=== PATIENT | male | born 1965 | race Caucasian/White ===

== ENCOUNTER 2023-07-23 08:29 | Outpatient (CLI) | payer OTHER, SELFPAY ==
--- NOTE | ~2023-07-23 | US_ITS ---
EXAMINATION: US thyroid DATE: 07/23/2023 10:08 INDICATION: Rodrick's thyroiditis. TECHNIQUE: Multiple ultrasound images of the thyroid were obtained. COMPARISON: None. FINDINGS: The right thyroid lobe measures 4.8 x 2.0 x 1.4 cm. The left thyroid lobe measures 4.4 x 1.9 x 1.4 c m. There is normal echotexture and echogenicity throughout the thyroid gland. No discrete nodules id entified. Normal vascular flow is present. IMPRESSION: 1. Normal thyroid. Reviewed, dictated and finalized at location E. IMPRESSION: 1. Normal thyroid.
--- NOTE | ~2023-07-23 | US_ITS ---
EXAMINATION: US carotid duplex BI DATE: 07/23/2023 10:17 INDICATION: Rodrick's thyroiditis TECHNIQUE: Grayscale, color Doppler, and pulsed Doppler images of the cervical carotid arteries were obtained. The degree of vessel stenosis is placed in one of the following categories: normal, <50%, 5 0-69%, >=70% but less than near-occlusion, near-occlusion, or total occlusion. Note that percent sten osis relative to normal distal artery lumen diameter is indirectly measured from velocity measurement s as described by Tra, et al. Radiology 2003; 229:340-346. COMPARISON: None. FINDINGS: RIGHT: The right common carotid artery (CCA) peak systolic velocity (PSV) is 61 cm/s. The right internal car otid artery (ICA) PSV is 52 cm/s. The right ICA end-diastolic velocity (EDV) is 16 cm/s. The right IC A/CCA PSV ratio is 0.9. Grayscale and color Doppler images yield an estimate of <50% diameter reducti on from plaque in the ICA. The external carotid artery (ECA) PSV is 68 cm/s. There is antegrade flow in the right vertebral artery. LEFT: The left CCA PSV is 64 cm/s. The left ICA PSV is 69 cm/s. The left ICA EDV is 28 cm/s. The left ICA/C CA PSV ratio is 1.1. Grayscale and color Doppler images yield an estimate of <50% diameter reduction from plaque in the ICA. The ECA PSV is 74 cm/s. There is antegrade flow in the left vertebral artery. IMPRESSION: 1. <50% stenosis in the right internal carotid artery. 2. <50% stenosis in the left internal carotid artery. Reviewed, dictated and finalized at location A.
--- NOTE | ~2023-07-23 | MR_ITS ---
MRI of the brain Clinical History: Bilateral retinal hemorrhage Technique: Axial and sagittal T1-weighted images were acquired. These were followed by axial T2-weigh christy, diffusion weighted, gradient, and FLAIR images. Following intravenous administration of 15 cc Mu ltiHance gadolinium, T1-weighted fat-sat imaging was performed in the axial and coronal planes. Findings: There is no abnormal signal in the brain parenchyma. No acute infarct, intracranial hemorrh age, or mass lesion identified. Ventricles and subarachnoid spaces are unremarkable. Orbits are unremarkable. In particular, no abnor mal signal seen in the eye globes. Paranasal sinuses and mastoid air cells are clear. Major intracran ial flow voids are intact. Sagittal midline structures are intact. No abnormal postcontrast enhancement identified. IMPRESSION: Unremarkable exam. Reviewed, dictated and finalized at [facility]. IMPRESSION: Unremarkable exam.
== END 2023-07-23 08:30 ==
PROVIDERS: PCP Emergency Medicine; Visit Provider Emergency Medicine
DX: H35.63 Retinal hemorrhage, bilateral (principal); I65.23 Occlusion and stenosis of bilateral carotid arteries; E06.3 Autoimmune thyroiditis
CPT/HCPCS: 70553; 76536; 93880; A9577

== ENCOUNTER 2023-10-02 10:47 | Outpatient (CLI) | payer OTHER, SELFPAY | END 2023-10-02 10:48 | disposition home or self-care (01) | LOC: ANHAUDASC 10:47 | PROVIDERS: PCP Emergency Medicine; Visit Provider Otolaryngology | DX: H90.3 Sensorineural hearing loss, bilateral (principal) | CPT/HCPCS: 92557; 92567 ==

== ENCOUNTER 2025-04-12 10:16 | Outpatient (CLI) | payer BC, SELFPAY ==
--- NOTE | ~2025-04-12 | CT_ITS ---
EXAMINATION: CT sinus wo con DATE: 04/12/2025 10:36 INDICATION: Chronic sinusitis TECHNIQUE: Computed tomography (CT) of the paranasal sinuses was performed without intravenous contra st. The dose-length product was 391.66 mGy-cm. Automated exposure control and iterative reconstructio n technique were employed. COMPARISON: None FINDINGS: Leftward nasal septal deviation. Ostiomeatal units are patent. No significant mucosal thick ening or mucoperiosteal reaction. No air-fluid levels. Mastoids are pneumatized. IMPRESSION: 1. No significant sinus disease. Reviewed, dictated and finalized at location A.
== END 2025-04-12 10:17 | disposition home or self-care (01) ==
PROVIDERS: PCP Otolaryngology; Visit Provider Emergency Medicine
DX: J34.3 Hypertrophy of nasal turbinates (principal)
CPT/HCPCS: 70486

== ENCOUNTER 2025-06-20 00:57 | Day surgery (SDC) | payer BC, SELFPAY ==
[2025-06-14 13:09] VITALS: BMI 25.1
--- NOTE | 2025-06-14 13:16 | SUR.PREOP ---
Report to the Outpatient Waiting Room, entrance under the green pavilion located off [facility], at time _1200_ on date 06/20/25. Planned Procedure Time: _1400_.? Time changes happen often and if your time is changed the preop area will call you the afternoon before. - You and your visitor will be asked to self-screen and do not enter if you have any COVID symptoms. Please call surgeon if you need to reschedule. - A mask is optional within the hospital at this time. Patients may have clear liquids (water, carbonated beverages, clear teas, apple juice) until 3 hours prior to surgery with a maximum of 20 ounces. - No food from midnight until time of surgery and no smoking, or chewing tobacco (or any form of nicotine). No chewing gum, candy or mints. - Infants may have breast milk until 4 hours before surgery, formula 6 hours prior to surgery. - Children will be allowed to drink immediately following surgery.? If applicable, please bring a bottle or sippy cup to assist with drinking. Juice, water, soda, and popsicles are readily available.? For infants on formula, please bring formula the day of surgery.? Pacifiers are allowed. Take only the following medications with a SIP of water on the morning of surgery: __n/a__ DO NOT STOP ANY OF YOUR OTHER PRESCRIPTION MEDICATIONS PRIOR TO SURGERY EXCEPT THE FOLLOWING Hold all vitamins and supplements for 3 days per anesthesiologist. Medications to discontinue per physician n/a____ Date to take last dose Please no make-up, nail bangladeshi, hairspray, perfume, deodorant, or body powder the day of surgery.? No jewelry (including any body piercings) or valuables the day of surgery, leave them at home.? Please take a shower or bath the night before, or the morning of, surgery with an antibacterial soap.? Wear comfortable, loose fitting clothing.? Children are encouraged to wear pajamas. - Jewelry must be removed prior to entering the operating room.? Rings and piercings that are not removed may be cut off. - The hospital will not accept responsibility for valuables.? - Please leave all valuables, including medications, at home the day of surgery. If you are going home after surgery, a licensed dray truck driver must drive you home.? - NO public transportation without another adult if you receive anesthesia. - We recommend that an adult stay with you for 24 hours following discharge. - We also recommend that you do not drive, make important decision, drink alcoholic beverages, or take any drugs that were not prescribed by your health care provider for at least 24 hours after your discharge time. For Pediatric surgeries, we recommend two adults accompany the child home. Follow any additional instructions given to you from your surgeon. Telephone instructions given to _patient_and asked if any additional questions and then verbalized understanding. Patient advised to call surgeon office or pre surgery nurse liaison [phone] if any additional questions.
[2025-06-20] VITALS (8 sets, daily range): BP systolic 100–130; BP diastolic 69–81; PULSE 47–61; RESP 12–17; TEMP 36.6–36.8; O2SAT 95–100
[2025-06-20] MEDS: ACETAMINOPHEN 500 MG TABLET 1000 MG PO (13:00)
[2025-06-20] MEDS: LACTATED RINGERS 1,000 ML 30 ML IV CONT (13:00)
--- NOTE | 2025-06-20 14:17 | P.PNAN_ITS ---
Anes - Initial Pre Proc Eval Procedure: Operation Date: 06/20/25 14:00 Proposed Procedures p Nasal Endoscopy, Marsupialization of Nasopharyngeal Cyst, - Fahad George MD s Possible Septoplasty - Fahad George MD Date/Time: 06/20/25 14:17 Surgeon: Fahad George MD Pre Op Diagnosis: chr. sinusitis, gerd, nasopharyngeal cyst,vasomoto Patient Data Age: 60 Gender: M Height: 1.78 m Weight: 80.5 kg Last Vital Signs Temp 97.9 F 06/20/25 13:00 Pulse 54 L 06/20/25 13:00 Resp 16 06/20/25 13:00 BP 111/78 06/20/25 13:00 Pulse Ox 100 06/20/25 13:00 O2 Del Method Room Air 06/20/25 13:00 Allergies Allergy/AdvReac Type Severity Reaction Status Date / Time No Known Allergies Allergy Verified 06/20/25 13:13 Home Medications ?Medication ?Instructions ?Recorded ?Confirmed ?Type testosterone 1.62 % (40.5 mg/2.5 1 packet transdermal DAILY 04/14/25 06/20/25 History gram) transdermal gel packet Patient hx anesthesia problems: none Family hx anesthesia problems: none Results Review: All pre-operative results and documents have been reviewed as part of the pre- operative evaluation. [facility] Social History Social History Smoking status: Never smoker Alcohol intake: current Alcohol use details: occasionaly Substance use: never Substance use type: does not use Lack of Transportation: No Lack of Food: Never True Current Housing: I Have Housing Concerned About Future Housing: No Difficulty Paying Gas/Electric Bills: No Difficulty Paying for Meds: No Currently Unemployed: No Education: Master's Degree or Higher Difficulty w/ Childcare or Family Care: No Living arrangements: with family Anes - Eval Final PreProcedure Day of Procedure 06/20/25 14:17 Patient weight: normal Lungs: normal air movement Airway: Mallampati scale class II Neurological: alert and oriented Last oral intake: >/= 8 hours ASA classification: I Emergent: no Anesthetic plan: proceed Anesthesia type and monitoring: general ETT and standard monitoring Results Review: All pre-operative results and documents have been reviewed as part of the pre- operative evaluation. Active, walks/bikes, no cp or sob. Informed Consent: The patient's anesthetic plan and its attendant risks and benefits were discussed with the patient/family/POA. Questions were solicited and answers provided to the satisfaction of the patient/family/POA.
--- NOTE | 2025-06-20 15:34 | P.HP_ITS ---
H&P: HPI History of Present Illness Date/Time: 06/20/25 15:34 Chief Complaint: Septal deviation nasopharyngeal cyst nasal drainage Narrative: Planned surgical procedure Review of Systems Review of Systems: All systems reviewed & are unremarkable except as noted in HPI and below [facility] Social History Social History Smoking status: Never smoker Alcohol intake: current Alcohol use details: occasionaly Substance use: never Substance use type: does not use Lack of Transportation: No Lack of Food: Never True Current Housing: I Have Housing Concerned About Future Housing: No Difficulty Paying Gas/Electric Bills: No Difficulty Paying for Meds: No Currently Unemployed: No Education: Master's Degree or Higher Difficulty w/ Childcare or Family Care: No Living arrangements: with family Meds Home Medications and Allergies Home Medications ?Medication ?Instructions ?Recorded ?Confirmed ?Type testosterone 1.62 % (40.5 mg/2.5 1 packet transdermal DAILY 04/14/25 06/20/25 History gram) transdermal gel packet Allergies Allergy/AdvReac Type Severity Reaction Status Date / Time No Known Allergies Allergy Verified 06/20/25 13:13 Vital Signs Vital Signs - 24 hr 06/20/25 13:00 Temperature 36.6 C Pulse Rate 54 L Respiratory Rate 16 Blood Pressure 111/78 Pulse Oximetry 100 Oxygen Delivery Room Air Exam Narrative: Nasopharyngeal cyst septal deviation Assessment and Plan Assessment and plan (1) Pharyngeal or nasopharyngeal cyst: Code(s): J39.2 - Other diseases of pharynx Status: Acute Assessment and Plan: Plan OR nasal endoscopy more soupy Ronna a ambrocio of nasopharyngeal cyst possible septoplasty. Anesthesia general. Risks were discussed bleeding infection damage to structures need further procedures change in taste change in swallow damage any structures because myself damage to any structure induction remains of anesthesia including vocal cord paralysis peers. Recurrent sepsis time off work, school inherent risk of medication use. Failure to resolve main symptom of nasal drainage. Patient voiced understanding of these risks and agreed. (2) Nasal septal deviation: Code(s): J34.2 - Deviated nasal septum Status: Acute
--- NOTE | 2025-06-20 15:35 | WPDHPUPDATE1 ---
History and Physical Update Update Date/Time: 06/20/25 15:35 History and Physical has been reviewed, including an updated exam of the patient. There are NO changes in the patient's condition. Risks, benefits, and alternatives have been discussed and questions answered. Patient agrees to proceed with procedure.
--- NOTE | 2025-06-20 15:39 | WPDHPUPDATE1 ---
History and Physical Update Update Date/Time: 06/20/25 15:39 History and Physical has been reviewed, including an updated exam of the patient. There are NO changes in the patient's condition. Risks, benefits, and alternatives have been discussed and questions answered. Patient agrees to proceed with procedure. Procedure will be bilateral nasal endoscopy, marsupialization of nasopharyngeal cyst, possible septoplasty
[2025-06-20] MEDS: ceFAZolin 2 GM in SODIUM CHLORIDE 0.9% IV 50 ML 100 ML IVPB (15:42)
--- NOTE | 2025-06-20 16:04 | S_PTH ---
PATIENT: Sae Mancilla LOC: [facility] U#:[id number] AGE/SX: 60/M ROOM: RE06/20/[address]: Fahad George MD : 1965 BED: DIS: 06/20/2025 SPEC #: [id number] RECD: 06/21/25 08:35 STATUS: JANI RIVERA #: [id number] JOSE: 06/20/25 16:[address]: Fahad George DEPT: [facility] Surgical RECD BY: Mary Jones MLT, ([facility]) ENTERED: 06/21/25 08:35 SP TYPE: Surgical OTHR DR: Ramiro Swanson MD Tissues: A - Cyst Procedures: [place] Methenamine Stain Hematoxylin and Eosin Stain Gross and Microscopic Level 4
[2025-06-20] MEDS: fentaNYL CITRATE INJ (*CRX) 100 MCG/2 ML VIAL 25 MCG IV PUSH ×4 (16:44→17:05)
--- NOTE | 2025-06-20 16:57 | P.OP_ITS ---
Procedure Note - Detailed Date of Procedure 06/20/25 Pre-op Diagnosis chr. sinusitis, gerd, nasopharyngeal cyst,vasomoto Post-op Diagnosis Same Procedure Performed 1. Bilateral nasal endoscopy 2. Marsupialization of nasopharyngeal cyst 3. Bilateral inferior turbinate outfracture Surgeon Fahad George MD Anesthesia General Indications See above Findings Fairly large nasopharyngeal cyst with cheese like curd-like material in it. Completely marsupialized anterior wall completely excised bleeding well controlled Description of Procedure Patient identified, consent consent very side the per consent verified in the preoperative holding area. Patient brought to the operating. Time-out performed. General anesthesia was induced endotracheal tube secured airway. Patient prepped draped position procedure confirmed. Second time-out performed. Nasal endoscopy performed. Turbinates had to be outfractured with a [place] elevator for access. Cyst visualized with a 0 degree endoscope as marsupialized using straight through cutter Apollo sleeve forceps up-biting Apollo sleeve forceps and a microdebrider. Care was taken to not injure any adjacent structures. Bleeding was controlled with warm water irrigations the application of Afrin-soaked pledgets. Blood loss 5 cc. I performed all dictated portions of procedure. All the Afrin-soaked pledgets were removed. Patient care the patient given Anesthesiology. Patient taken to PACU. Specimens of the cyst were sent for pathologic analysis. Estimated Blood Loss 5 Drains No Packing No Pathology Yes Complications No immediate complications Condition Stable Disposition PACU [facility] Billing Surgery - Charge Forward: Surgery Billing
== END 2025-06-20 18:00 | disposition home or self-care (01) ==
PROVIDERS: PCP Emergency Medicine; Visit Provider Otolaryngology
PROC: (CPT 31237; principal; 2025-06-20 14:00)
DX: J34.2 Deviated nasal septum (principal); J39.2 Other diseases of pharynx; B47.9 Mycetoma, unspecified; G89.18 Other acute postprocedural pain
CPT/HCPCS: 31237; 30930; 88305; 88312; J0690; A9270; J0330; J1100; J2004; J2250; J2405; J2704; J3010; J7120